=== PATIENT | female | born 1990 | race Two or more races ===

== ENCOUNTER 2017-04-30 09:30 | Emergency (ER) | payer MEDICAID ==
[2017-04-30 11:21] LABS: CALCIUM 8.8 mg/dL (8.5-10.1); CARBON DIOXIDE 23.7 mmol/L (21-32); CHLORIDE SERUM 102 mmol/L (98-107); CREATININE SERUM 0.4 mg/dL (0.6-1.0); GFR1 > 60 mL/min; GLUCOSE SERUM 86 mg/dL (74-106); POTASSIUM SERUM 3.5 mmol/L (3.5-5.1); SODIUM SERUM 138 mmol/L (136-145)
[2017-04-30 11:22] LABS: BASOPHIL % 0.4 % (0-2); PLATELET COUNT 281 x10^3mcL (130-400); RED CELL DISTRIBUTION WIDTH 13.5 % (11.5-14.5)
[2017-04-30 11:33] LABS: ALKALINE PHOSPHATASE 54 U/L (46-116); ALT/SGPT 41 U/L (14-59); AMYLASE 47 U/L (25-115); AST/SGOT 25 U/L (15-37); BILIRUBIN TOTAL 0.4 mg/dL (0.20-1.00); CHOLESTEROL 188 mg/dL (<200); HDL CHOLESTEROL 55 mg/dL (40-60); LIPASE 98 IU/L (73-393); T4(THYROXINE) 8.2 ug/dL (4.7-13.3); TOTAL PROTEIN, SERUM 7.2 g/dL (6.4-8.2)
[2017-04-30 11:55] LABS: AMPHETAMINE QUAL UR NONE DETECTED (NEG <=1000)
[2017-04-30 12:13] LABS: UA SPECIFIC GRAVITY 1.025 (1.005-1.035)
[2017-04-30 12:14] LABS: microscopic required? YES; urine erythrocyte 1+ (NEGATIVE)
[2017-04-30 14:08] VITALS: BP 128/75
== END 2017-04-30 14:08 | disposition home or self-care (01) ==
LOC: ED 09:30
PROVIDERS: Emergency Medicine
DX: O36.0920 Maternal care for other rhesus isoimmunization, second trimester, not applicable or unspecified (principal); Z3A.00 Weeks of gestation of pregnancy not specified; O99.212 Obesity complicating pregnancy, second trimester; O25.12 Malnutrition in pregnancy, second trimester; O99.012 Anemia complicating pregnancy, second trimester
CPT/HCPCS: 82962; 83880; J7030

== ENCOUNTER 2017-05-30 01:28 | Emergency (ER) | payer MEDICAID ==
[2017-05-30 03:08] LABS: CALCIUM 8.7 mg/dL (8.5-10.1); CARBON DIOXIDE 22.4 mmol/L (21-32); CHLORIDE SERUM 104 mmol/L (98-107); CREATININE SERUM 0.8 mg/dL (0.6-1.0); GFR1 > 60 mL/min; GLUCOSE SERUM 140 mg/dL (74-106); PLATELET COUNT 306 x10^3mcL (130-400); POTASSIUM SERUM 3.4 mmol/L (3.5-5.1); RED CELL DISTRIBUTION WIDTH 12.8 % (11.5-14.5); SODIUM SERUM 139 mmol/L (136-145)
[2017-05-30 03:12] LABS: ALKALINE PHOSPHATASE 52 U/L (46-116); ALT/SGPT 26 U/L (14-59); AST/SGOT 24 U/L (15-37); BILIRUBIN TOTAL 0.54 mg/dL (0.20-1.00); LIPASE 128 IU/L (73-393); TOTAL PROTEIN, SERUM 7.3 g/dL (6.4-8.2)
[2017-05-30 03:17] LABS: BASOPHIL % 3.6 % (0-2)
[2017-05-30 03:29] LABS: ALBUMIN 3.1 g/dL (3.4-5.0)
[2017-05-30 03:37] LABS: UA SPECIFIC GRAVITY >=1.030 (1.005-1.035); microscopic required? YES; urine erythrocyte NEGATIVE (NEGATIVE)
[2017-05-30 04:28] VITALS: BP 108/55
== END 2017-05-30 04:00 | disposition home or self-care (01) ==
LOC: ED 01:28
PROVIDERS: Emergency Medicine
DX: O23.42 Unspecified infection of urinary tract in pregnancy, second trimester (principal); Z3A.20 20 weeks gestation of pregnancy; Z86.2 Personal history of diseases of the blood and blood-forming organs and certain disorders involving the immune mechanism
CPT/HCPCS: J2405

== ENCOUNTER 2017-06-01 18:03 | Inpatient (IN) | payer MEDICAID ==
[~2017-06-01] VITALS: Ht 172.7 cm; Wt 156.5 kg
--- NOTE | 2017-06-01 18:35 | NUR ---
PT PRESENTS TO ED WITH C/O OF CRAMPING LLQ PAIN AND N/V X2 DAYS. PT REPORTS BEING APPROX 16 WEEKS . PT REPORTS BEING SEEN HERE AT [facility] ED TWO DAYS AGO FOR THE SAME. PT DENIES RECENT ILLNESS, DENIES DIFFICULTY WITH BOWEL AND BLADDER HABITS. PT REPORTS BEING UNABLE TO KEEP ANYTHING DOWN, BUT STATES THE MEDICATIONS GIVEN TWO DAYS AGO MADE THE NAUSEA GO AWAY IMMEDIATELY. PT CHANGED INTO GOWN, AWAITING EVAL BY PHYSICIANS.
--- NOTE | 2017-06-01 18:57 | NUR ---
PT MEDICATED PER MD ORDERS FOR PAIN AND NAUSEA.
--- NOTE | 2017-06-01 19:07 | NUR ---
CARE ENDORSED TO AND REPORT GIVEN TO ARABELLA Ma RN TO ASSUME CARE OF PT.
[2017-06-01 19:09] LABS: BASOPHIL % 0.3 % (0-2); PLATELET COUNT 303 x10^3mcL (130-400); RED CELL DISTRIBUTION WIDTH 13.8 % (11.5-14.5)
[2017-06-01 19:20] LABS: CALCIUM 8.7 mg/dL (8.5-10.1); CARBON DIOXIDE 21.9 mmol/L (21-32); CHLORIDE SERUM 104 mmol/L (98-107); CREATININE SERUM 0.5 mg/dL (0.6-1.0); GFR1 > 60 mL/min; GLUCOSE SERUM 107 mg/dL (74-106); POTASSIUM SERUM 3.4 mmol/L (3.5-5.1); SODIUM SERUM 139 mmol/L (136-145)
--- NOTE | 2017-06-01 19:20 | NUR ---
PT PULLED INITIAL IV OUT, NEW SITE ESTABLISHED
[2017-06-01 19:32] LABS: ALKALINE PHOSPHATASE 70 U/L (46-116); ALT/SGPT 36 U/L (14-59); AMYLASE 67 U/L (25-115); AST/SGOT 32 U/L (15-37); BILIRUBIN TOTAL 0.6 mg/dL (0.20-1.00); LIPASE 161 IU/L (73-393); TOTAL PROTEIN, SERUM 7.2 g/dL (6.4-8.2)
[2017-06-01 19:33] LABS: ALBUMIN 2.9 g/dL (3.4-5.0)
[2017-06-01] MEDS ORDERED: MAC100 (19:47)
[2017-06-01 21:11] LABS: MAGNESIUM 2.1 mg/dL (1.8-2.4); PHOSPHOROUS 4.4 mg/dL (2.5-4.9)
[2017-06-01 21:12] LABS: CHOLESTEROL/HDL RATIO 3.3
[2017-06-01 21:18] LABS: T3 TOTAL 1.57 ng/mL
[2017-06-01 21:35] LABS: microscopic required? YES; urine erythrocyte NEGATIVE (NEGATIVE)
[2017-06-01 21:36] LABS: FREE T4 0.84 ng/dL (0.76-1.46); FREE THYROXINE INDEX 2.7 ug/dL (1.4-4.5)
--- NOTE | 2017-06-01 21:55 | NUR ---
REPORT GIVEN CELESTINA TSE FOR CONTINUITY OF CARE IN [facility]
[2017-06-01 22:11] LABS: AMPHETAMINE QUAL UR NONE DETECTED (NEG <=1000)
[2017-06-01 22:38] VITALS: BP 128/74
[2017-06-01 22:43] VITALS: BP 128/74
--- NOTE | 2017-06-01 22:46 | NUR ---
RECEIVED PATIENT FROM ED VIA [facility]ERNEY, PATIENT ALERT AND ORIENTED, TELE # 2 SR, IV ACCESS TO RAC WNL, NO C/O PAIN AT THIS TIME, ORIENTED PATIENT TO ROOM AND SURROUNDINGS, BED IN LOW POSITION, BED RAILS UP X 2, CALL LIGHT WITHIN REACH, WILL ENDORSE CARE TO PRIMARY NURSE CELESTINA TSE
--- NOTE | 2017-06-01 23:34 | NUR ---
PT. RESTING QUIETLY IN BED. DENIES ANY PAIN, DENIES NAUSEA. IVF NS AT 150CC/HR. CALL LIGHT REMAINS WITHIN REACH.
--- NOTE | 2017-06-02 02:53 | NUR ---
PT. RESTING QUIETLY, APPEARS TO BE SLEEPING, EYES CLOSED. NO C/O PAIN THUS FAR. CALL LIGHT WITHIN REACH.
[2017-06-02 06:06] VITALS: BP 105/67
[2017-06-02 06:22] LABS: BASOPHIL % 0.3 % (0-2); PLATELET COUNT 274 x10^3mcL (130-400); RED CELL DISTRIBUTION WIDTH 13.9 % (11.5-14.5)
[2017-06-02 06:38] LABS: CALCIUM 8.4 mg/dL (8.5-10.1); CARBON DIOXIDE 22.5 mmol/L (21-32); CHLORIDE SERUM 105 mmol/L (98-107); CREATININE SERUM 0.5 mg/dL (0.6-1.0); GFR1 > 60 mL/min; GLUCOSE SERUM 88 mg/dL (74-106); POTASSIUM SERUM 3.3 mmol/L (3.5-5.1); SODIUM SERUM 138 mmol/L (136-145)
--- NOTE | 2017-06-02 07:23 | NUR ---
HEART TONES DONE. PER TECH, HEART RATE 154.
--- NOTE | 2017-06-02 07:30 | NUR ---
REASSESSMENT DONE. PT AWAKE, COOPERATIVE OF CARE. DENIES ABDOMINAL PAIN AT MOMENT. DENIES N.V.D. ON TELE #2 NSR ON MONITOR. CALL LIGHT WITHIN REACH. BED IN LOWEST POSITION.
[2017-06-02 09:41] VITALS: BP 112/53
--- NOTE | 2017-06-02 12:40 | NUR ---
PT IN BED. NO DISTRESS. REPORTS COMFORT. DENIES PAIN AT MOMENT. EFFORTLESS BREATHING ON ROOM AIR. CALL LIGHT WITHIN REACH.
[2017-06-02 14:07] VITALS: BP 118/65
[2017-06-02 17:14] VITALS: BP 115/54
--- NOTE | 2017-06-02 18:51 | NUR ---
PT IN BED DENIES PAIN. NO DISTRESS. CALL LIGHT WITHIN REACH. FAMILY AT BEDSIDE.
--- NOTE | 2017-06-02 19:30 | NUR ---
PT. AWAKE,ALERT, ORIENTED X4. DENIES HEADACHE OR DIZZINESS. BREATH SOUNDS CLEAR THOUGHOUT LUNG COHEN, RESP. EVEN, UNLABORED. NO SOB NOTED. NSR ON MONITOR. ABD. SOFT AND ROUND, , GESTATION APPROX 22 WEEKS. NO EDEMA NOTED TO EXTREMITIES,PEDAL PULSES STRONG CHARLENE. IVF NS AT 150CC/HR. CALL LIGHT WITHIN REACH.
[2017-06-02 22:09] VITALS: BP 113/69
--- NOTE | 2017-06-03 02:48 | NUR ---
PT. SLEEPING. NO C/O ABD. PAIN THUS FAR. CALL LIGHT WITHIN REACH.
[2017-06-03 05:17] VITALS: BP 116/62
--- NOTE | 2017-06-03 05:56 | NUR ---
PT. SLEEPING AT THIS TIME. NO COMPLAINTS THROUGHOUT NIGHT. IVF INFUSING WELL, SITE WNL. CALL LIGHT REMAINS WITHIN REACH.
[2017-06-03 06:29] LABS: CALCIUM 8.1 mg/dL (8.5-10.1); CARBON DIOXIDE 23.1 mmol/L (21-32); CHLORIDE SERUM 105 mmol/L (98-107); CREATININE SERUM 0.4 mg/dL (0.6-1.0); GFR1 > 60 mL/min; GLUCOSE SERUM 75 mg/dL (74-106); POTASSIUM SERUM 3.3 mmol/L (3.5-5.1); SODIUM SERUM 137 mmol/L (136-145)
--- NOTE | 2017-06-03 07:50 | NUR ---
REASSESSMENT DONE. PT AWAKE, COOPERATIVE OF CARE. REPORTS COMFORT AT MOMENT, DENIES PAIN, TOLERATING DIET WELL. IV PATENT TO RAC #20. CALL LIGHT WITHIN REACH, BED IN LOWEST POSITION.
[2017-06-03 08:04] VITALS: BP 111/59
[2017-06-03 13:11] VITALS: BP 105/79
--- NOTE | 2017-06-03 14:01 | NUR ---
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 Wt: 344 lb, 156 kg. BMI: 52.5 kg/m2 () - Likely inaccurate due to IBW: 140 lb, 64 kg. %IBW: %. UBW: 396 lb, 180 kg (before ); 347 lb, 158 kg (January 2017) Age: 26 Y/O F Food Allergies: None Skin: Intact. Nestor 21. Edema: None GI: Abd soft, round. Active bowel sounds. Last BM 06/01. Nursing Trigger: Unintentional weight loss >10 lb in past month Pt found with abd pain secondary to cholelithiasis vs pancreatitis, high risk intrauterine secondary to possible RH incompatibility, US gall bladder showed hepatomegaly with steatosis, cholelithiasis, US endovaginal OB pending, O-negative high risk , Dr. Mccullough consult pending, iron, vitamin C, folic acid supplementation per doctor's notes. Per doctor's progress note 06/02, Dr. Armijo consulted and recommended OB consult, Dr. Mccullough consulted and recommend pt wait until after to remove gallbladder and just control pain with meds and diet. Pt was seen sitting on chair at bedside, no visitors/family at bedside during RD visit. Pt reported tolerating diet well, some nausea, no vomiting noted at this time. Pt verified that she is approximately 22 weeks at this time. Problem with: N: Yes. V: None. D: None. C: None. Problems with: Chewing: None. Swallowing: None. Current Appetite: Good Recent Weight Change: -49 lb. % Weight Change: 12.4% weight loss within 6 month - Significant d/t unable to eat properly, nauseated per pt. Part of weight loss might be intentional due to starting a new meal plan in October 2016 Vitamin/Supplement use: vitamins Diet at Home: Regular; Pt reported started a new meal plan in October 2016, trying to avoid fried foods, eating healthier Physical Activity: Walks everyday Education: RD provided nutrition education on and tips on slow weight gain during due to pt's current obese weight status. RD discussed general healthful eating, food options, low fat food options due to pt's medical condition, encouraged exercise daily and consuming vitamins. Handouts provided. Pt very receptive and verbalizes understanding. Estimated Nutritional Needs Based CBW 344 lb, 156 kg. Energy: 2688 kcal/day (: Non EER + 340) Protein: 125 gm/day (0.8 gm/kg for Maintenance) Fluids: 4L/day (30 ml/kg for Maintenance) or per doctor Nutrition Diagnosis Increase nutritional needs (energy, protein, fluid) related to increase metabolic demands as evidenced by pt 22 weeks Intervention 1. Continue Full Liquid diet per doctor. 2. Consider advance as tolerated to Low Fat diet if/when medically appropriate. 3. Recommend vitamin 1 tab PO daily (Materna). 4. Recommend weekly weights. Monitor/Evaluate Goal: PO intakes to meet >75% of estimated needs with tolerance; Weight gain 0.5 lb per week Monitor: PO intakes, tolerance to diet, labs, skin integrity, GI function, weights F/U in 3-5 days as MODERATE risk (105-107)
[2017-06-03 14:44] VITALS: BP 105/79
--- NOTE | 2017-06-03 15:34 | NUR ---
I HAVE REVIEWED THE DATA COLLECTION BY CREATIVE ART DIRECTOR (NAME):AWAIS DUONG. ENTERED ON (DATE/TIME):06/03/17 PATIENT'S PLAN OF CARE WAS DISCUSSED AND REVIEWED WITH CREATIVE ART DIRECTOR:AWAIS DUONG. I CONCUR WITH THE DATA AND ANY EXCEPTIONS OR COMMENTS ARE LISTED BELOW:
--- NOTE | 2017-06-03 15:39 | NUR ---
DISCHARGE INSTRUCTIONS GIVEN TO PATIENT. PT VERBALIZED UNDERSTANDING FOR FOLLOW UP APPOINTMENT, AND RECOMMENDED DIET. IV DC'D PT TOLERATED WELL, CATHETER INTACT, NO PHLEBITIS. PT TO BE TRANSPORTED OUT OF UNIT VIA WHEELCHAIR.
== END 2017-06-03 15:54 | disposition home or self-care (01) | DRG 566 ==
LOC: ED 18:03 → DU 20:25
PROVIDERS: Emergency Medicine; ADMIT Family Medicine Sports Medicine
DX: O99.612 Diseases of the digestive system complicating pregnancy, second trimester (principal); N17.0 Acute kidney failure with tubular necrosis; O26.832 Pregnancy related renal disease, second trimester; E87.6 Hypokalemia; O99.212 Obesity complicating pregnancy, second trimester; O25.12 Malnutrition in pregnancy, second trimester; E78.5 Hyperlipidemia, unspecified; E66.01 Morbid (severe) obesity due to excess calories; Z68.43 Body mass index [BMI] 50.0-59.9, adult; Z3A.22 22 weeks gestation of pregnancy
CPT/HCPCS: 83880; 84439; J0295; J2405; J2765; J3010; J3490; J7030; Q0092

== ENCOUNTER 2017-06-20 16:40 | Emergency (ER) | payer MEDICAID ==
[~2017-06-20 16:40] MED LIST: MAC100
[2017-06-20 18:08] LABS: BASOPHIL % 0.2 % (0-2); PLATELET COUNT 275 x10^3mcL (130-400); RED CELL DISTRIBUTION WIDTH 13.8 % (11.5-14.5)
[2017-06-20 18:17] LABS: CALCIUM 9.2 mg/dL (8.5-10.1); CARBON DIOXIDE 21.9 mmol/L (21-32); CHLORIDE SERUM 105 mmol/L (98-107); CREATININE SERUM 0.7 mg/dL (0.6-1.0); GFR1 > 60 mL/min; GLUCOSE SERUM 109 mg/dL (74-106); POTASSIUM SERUM 3.3 mmol/L (3.5-5.1); SODIUM SERUM 137 mmol/L (136-145)
[2017-06-20 18:22] LABS: ALKALINE PHOSPHATASE 68 U/L (46-116); ALT/SGPT 36 U/L (14-59); AST/SGOT 35 U/L (15-37); BILIRUBIN TOTAL 0.89 mg/dL (0.20-1.00); LIPASE 115 IU/L (73-393); TOTAL PROTEIN, SERUM 7.2 g/dL (6.4-8.2)
[2017-06-20 20:48] VITALS: BP 115/54
== END 2017-06-20 20:48 | disposition home or self-care (01) ==
LOC: ED 16:40
PROVIDERS: Emergency Medicine
DX: O99.612 Diseases of the digestive system complicating pregnancy, second trimester (principal); Z3A.00 Weeks of gestation of pregnancy not specified; Z87.19 Personal history of other diseases of the digestive system
CPT/HCPCS: J2550; J7030; Q0092

== ENCOUNTER 2017-07-29 01:26 | Emergency (ER) | payer MEDICAID ==
[2017-07-29 02:10] LABS: CALCIUM 9.2 mg/dL (8.5-10.1); CARBON DIOXIDE 25.5 mmol/L (21-32); CHLORIDE SERUM 103 mmol/L (98-107); CREATININE SERUM 0.7 mg/dL (0.6-1.0); GFR1 > 60 mL/min; GLUCOSE SERUM 104 mg/dL (74-106); POTASSIUM SERUM 3.5 mmol/L (3.5-5.1); SODIUM SERUM 137 mmol/L (136-145)
[2017-07-29 02:14] LABS: ALKALINE PHOSPHATASE 82 U/L (46-116); ALT/SGPT 25 U/L (14-59); AST/SGOT 21 U/L (15-37); BILIRUBIN TOTAL 0.57 mg/dL (0.20-1.00); TOTAL PROTEIN, SERUM 7.3 g/dL (6.4-8.2)
[2017-07-29 02:15] LABS: ALBUMIN 2.8 g/dL (3.4-5.0)
[2017-07-29 02:32] LABS: BASOPHIL % 0.3 % (0-2); PLATELET COUNT 310 x10^3mcL (130-400)
[2017-07-29 03:07] VITALS: BP 136/54
== END 2017-07-29 03:09 | disposition home or self-care (01) ==
LOC: ED 01:26
PROVIDERS: Emergency Medicine
DX: O26.893 Other specified pregnancy related conditions, third trimester (principal); O99.613 Diseases of the digestive system complicating pregnancy, third trimester; K21.9 Gastro-esophageal reflux disease without esophagitis; Z3A.28 28 weeks gestation of pregnancy
CPT/HCPCS: 83880; J2270; J2405; J2765